=== PATIENT | female | born 1980 ===

== ENCOUNTER → 2023-05-01 16:28 | Outpatient (CLI) | payer BC, SELFPAY ==
--- NOTE | ~2023-05-01 | MM_ITS ---
EXAMINATION: MM screening rosa BI w susan HISTORY: Screening mammogram TECHNIQUE: Craniocaudal and mediolateral oblique 3-D tomosynthesis images were obtained and synthetic 2-D images were generated. CAD analysis was submitted and interpreted. COMPARISON: No prior mammogram is available for comparison at this institution. BREAST PARENCHYMAL COMPOSITION: There are scattered areas of fibroglandular density. FINDINGS: There are scattered benign calcifications. There is no evidence of suspicious mass, calcifi cation, or architectural distortion to suggest malignancy in either breast. IMPRESSION: 1. No mammographic evidence of malignancy. 2. Recommend routine screening mammography in one year. BI-RADS Category 2: Benign finding(s). Reviewed, dictated and finalized at location A.
== END ==
PROVIDERS: PCP Obstetrics & Gynecology; Visit Provider Obstetrics & Gynecology
DX: Z12.31 Encounter for screening mammogram for malignant neoplasm of breast (principal)
CPT/HCPCS: 77063; 77067

== ENCOUNTER 2024-04-13 12:52 | Emergency (ER) | payer OTHER, SELFPAY ==
--- NOTE | ~2024-04-13 | XR_ITS ---
Clinical Indication: Cough PA and lateral views of the chest: Comparison: None Findings: The lungs are clear, without evidence of focal consolidation or pleural effusion. Cardiome diastinal silhouette is within normal limits. Bones and soft tissues are unremarkable. Impression: Normal chest. Reviewed, dictated and finalized at location . Impression: Normal chest.
[2024-04-13 13:07] VITALS: BP 114/72; PULSE 81; RESP 16; TEMP 37.5; O2SAT 99
--- NOTE | 2024-04-13 14:10 | ED.GENADULT ---
HPI - General Adult General Chief complaint: Upper Respiratory Infection Stated complaint: Cough/Chest Congesrion Source: patient Mode of arrival: ambulatory Limitations: no limitations History of Present Illness HPI narrative: Patient presents for evaluation of respiratory symptoms since the middle of last week. Symptoms include cough, wheezing and shortness of breath. Cough was initially productive but has since become nonproductive. She had some body aches and sinus congestion but those symptoms have improved. She has some sensitivity in her ears on a chronic basis, but current symptoms are slightly worse than her baseline. 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 She does not smoke. She tried taking mucinex DM and several other medications without much improvement. She has also tried drinking whiskey, tea with honey and tried several other home remedies without much improvement. She has pleuritic chest discomfort and is having a hard time sleeping secondary to her cough. Related Data Allergies Allergy/AdvReac Type Severity Reaction Status Date / Time Sulfa (Sulfonamide Allergy Severe LOSS OF Verified 09/10/16 18:33 Antibiotics) CONCIOUSNESS Review of Systems Review of Systems: CONSTITUTIONAL: Denies fever, chills, or sweats. EYES: Denies visual changes, redness, or discharge. ENT: Reports ear sensitivity on a chronic basis, with current symptoms slightly worse than her baseline Denies sore throat CARDIOVASCULAR: Reports pleuritic chest pain. Denies chest pain otherwise, palpitations, or edema. RESPIRATORY: Reports cough, SOB and wheezing GASTROINTESTINAL: Denies abdominal pain, nausea, vomiting, or diarrhea. GENITOURINARY: Denies dysuria or hematuria. SKIN: Denies rash or itching. MUSCULOSKELETAL: Reports some recent body aches, which have since improved. NEUROLOGIC: Denies headache, numbness, dizziness, or weakness. PSYCHIATRIC: Denies anxiety or depression. [facility] Past Medical History Medical History No pertinent past medical history Surgical History Surgical History No pertinent past surgical history Family History Family History Mother Unknown family medical history Social History Social History Smoking status: Never smoker Substance use: never Living arrangements: alone Additional occupation/education comments: works in daycare Gender identity (if verbalized by the patient): Female Spiritual care concerns: No Exam Narrative: GENERAL: Well-appearing, well-nourished, and in no acute distress. HEAD: Normocephalic, atraumatic. EYES: PERRLA and EOMI. ENT: Nares clear, no rhinorrhea or epistaxis. Mucous membranes moist. Oropharynx without tonsillar hypertrophy exudate or other lesions. Bilateral TMs pearly brito nonbulging NECK: Supple. No adenopathy or masses. No carotid bruits or JVD CHEST: Occasional cough present on exam. Clear to auscultation. No respiratory distress. No wheezes rales or rhonchi HEART: Regular rate and rhythm. No murmur heard. Normal peripheral pulses. ABDOMEN: Soft, nontender, nondistended, normal active bowel sounds. EXTREMITIES: Normal range of motion. No edema. SKIN: Warm, dry, no rash. NEURO: No focal deficits. Alert and oriented x3. PSYCH: Normal mood and affect. Course Course Emergency Course: This is a 44-year-old female who presented for evaluation of sick symptoms. COVID and influenza were negative. Chest x-ray normal. Exam is consistent with acute viral syndrome. She has been wheezing at home and has pleuritic chest pain will DC with prednisone and albuterol. Increase hydration. OTC agents for symptom management. Follow up with primary provider. Go to the ER for worsen
== END 2024-04-13 14:15 | disposition home or self-care (01) ==
PROVIDERS: Emergency Provider Nurse Practitioner
DX: J06.9 Acute upper respiratory infection, unspecified (principal); Z20.822 Contact with and (suspected) exposure to COVID-19
CPT/HCPCS: 71046; 87426; 87804; 99203; G0463

== ENCOUNTER 2025-10-16 15:27 | Emergency (ER) | payer OTHER, SELFPAY ==
[2025-10-16] VITALS (19 sets, daily range): BP systolic 104–159; BP diastolic 63–100; PULSE 62–98; RESP 13–30; TEMP 36.7; O2SAT 94–100
--- NOTE | ~2025-10-16 | XR_ITS ---
EXAMINATION: XR chest 2V, 10/16/2025 16:00 WELL TESTER HISTORY: cp COMPARISON: No comparisons available. Technique: 2 views obtained. Findings: The lungs are clear, no effusion. No pneumothorax. Heart is normal size. Mediastinal and hilar contours are within normal limits. Bony thorax no acute abnormality. Impression: No acute cardiopulmonary abnormality. Reviewed, dictated and finalized at location P. TESTER Impression: No acute cardiopulmonary abnormality.
--- NOTE | ~2025-10-16 | CT_ITS ---
EXAMINATION: CTA chest PE protocol DATE: 10/16/2025 20:32 INDICATION: Intermittent chest pain. TECHNIQUE: Computed tomography angiography (CTA) of the chest was performed with 100 mL Omnipaque-350 intravenous contrast timed to evaluate the pulmonary arteries. Coronal maximum intensity projection 3D-reconstructions were created by the technologist. Automated exposure control and iterative reconstruction technique were employed. The dose-length product was 336.87 mGy-cm. COMPARISON: None. FINDINGS: The lungs demonstrate mild atelectasis. No pleural effusion. The heart size is normal. No pericardial effusion. There is no pulmonary embolus. There is mild thoracic spondylosis. IMPRESSION: 1. No pulmonary embolus. Reviewed, dictated and finalized at location E. L WHEEL ENGRAVER IMPRESSION: 1. No pulmonary embolus.
--- NOTE | 2025-10-16 15:33 | ECG_ITS ---
Test Date: 2025-10-16 15:37:40 Measurements Intervals [place] Rate: 82 P: 11 MS: 163 QRS: 11 QRSD: 84 T: -7 QT: 358 QTc: 421 Interpretive Statements SINUS RHYTHM CONSIDER INFERIOR INFARCT, AGE INDETERMINATE BORDERLINE ST-T WAVE ABNORMALITY- LAT/HIGH LAT LEADS BASELINE ARTIFACT- I, II, III, AVR, AVL, AVF, V3-V6 ABNORMAL ECG No previous ECG available for comparison Electronically Signed On 10-16-2025 19:34:50 CONFERENCE COORDINATOR by Michael Moore D.O.
--- NOTE | 2025-10-16 15:48 | ED_ITS ---
HPI - General Adult General Chief complaint: Chest Pain <Ildefonso Sanz MD - Last Filed: 10/18/25 02:46> Stated complaint: medial CP and L. shoulder pain <Ildefonso Sanz MD - Last Filed: 10/18/25 02:46> Time Seen by Provider: 10/16/25 15:34 <Ildefonso Sanz MD - Last Filed: 10/18/25 02:46> History of Present Illness HPI narrative: 45-year-old female presents emergency department for evaluation for intermittent substernal chest pain. Patient reports symptoms started today. Patient states pain feels like a pressure in her chest that is worsened with deep inspiration. Patient denies any cardiac history. Patient denies any history of hypertension and cholesterol or diabetes. Patient has never had a stress test. Patient is on estrogen and progesterone for hormone replacement. Patient denies any prior history of PE or DVT. Patient does have reproducible chest wall tenderness to palpation. No lower extremity calf tenderness to palpation <Ildefonso Sanz MD - Last Filed: 10/18/25 02:46> Related Data Allergies/adverse reactions: Allergies Allergy/AdvReac Type Severity Reaction Status Date / Time latex Allergy Severe Dyspnea / Verified 10/16/25 15:30 SOB pseudoephedrine (From Allergy Severe Dyspnea / Verified 10/16/25 15:30 Sudafed) SOB Sulfa (Sulfonamide Allergy Severe Dyspnea / Verified 10/16/25 15:30 Antibiotics) SOB <Ildefonso Sanz MD - Last Filed: 10/18/25 02:46> Review of Systems 2 Review of Systems: All systems reviewed & are unremarkable except as noted in HPI and below <Ildefonso Sanz MD - Last Filed: 10/18/25 02:46> [facility] Past Medical History Medical History: Medical History No pertinent past medical history <Ildefonso Sanz MD - Last Filed: 10/18/25 02:46> Surgical History Surgical History: Surgical History No pertinent past surgical history <Ildefonso Sanz MD - Last Filed: 10/18/25 02:46> Family History Family History: Family History Mother Unknown family medical history <Ildefonso Sanz MD - Last Filed: 10/18/25 02:46> Social History Social History: Social History Smoking status: Never smoker Substance use: never Living arrangements: alone Additional occupation/education comments: works in daycare Gender identity (if verbalized by the patient): Female Spiritual care concerns: No <Ildefonso Sanz MD - Last Filed: 10/18/25 02:46> Exam 2 Narrative: APPEARANCE: Well appearing, no pain, no distress, well-nourished. HEAD: normocephalic, atraumatic. EYES: PERRLA/EOMI, conjunctivae clear. NOSE: Normal no drainage EARS:TMS clear with good light reflex. THROAT: Pharynx clear, no exudate. NECK: Supple. No adenopathy, no masses. RESPIRATORY: Airway patent, respirations nonlabored. Clear to auscultation bilaterally, no rales, rhonchi, wheezing. CARDIOVASCULAR: Regular rate and rhythm without murmurs rubs or gallops. ABDOMINAL: Soft, nontender, nondistended, normal bowel sounds MUSCULOSKELETAL: Reproducible left sternal tenderness to palpation NEURO: Alert. Cranial nerves II through XII intact. Good gait. Good coordination SKIN: Warm, dry. Normal Color <Ildefonso Sanz MD - Last Filed: 10/18/25 02:46> Course UTILITY MANAGER/PA Physician Supervision This visit was performed by both a physician and an APC. I performed all aspects of the MDM as documented. <Samuel Brooks DO - Last Filed: 10/17/25 07:09> Vital Signs Vital signs: Vital Signs Temperature 98.1 F 10/16/25 15:34 Pulse Rate 98 10/16/25 15:34 Respiratory Rate 16 10/16/25 15:34 Blood Pressure 159/100 H 10/16/25 15:34 Pulse Oximetry 98 10/16/25 15:34 Oxygen Delivery Room Air 10/16/25 15:34 Temperature 98.1 F 10/16/25 15:34 Pulse Rate 70 10/17/25 01:29 Respiratory Rate 16 10/17/25 01:29 Blood Pressure 122/69 10/17/25 01:29 Pulse Oximetry 100 10/17/25 01:29 Oxygen Delivery Room Air 10/16/25 15:34 <Ildefonso aSnz MD - Last Filed: 10/18/25 02:46> Vital Signs Temperature 98.1 F 10/16/25 15:34 Pulse Rate 98 10/16/25 15:34 Respiratory Rate 16 10/16/25 15:34 Blood Pressure 159/100 H 10/16/25 15:34 Pulse Oximetry 98 10/16/25 15:34 Oxygen Delivery Room Air 10/16/25 15:34 Temperature 98.1 F 10/16/25 15:34 Pulse Rate 70 10/17/25 01:29 Respiratory Rate 16 10/17/25 01:29 Blood Pressure 122/69 10/17/25 01:29 Pulse Oximetry 100 10/17/25 01:29 Oxygen Delivery Room Air 10/16/25 15:34 <Francisca Fisher APRN - Last Filed: 10/17/25 01:36> Vital Signs Temperature 98.1 F 10/16/25 15:34 Pulse Rate 98 10/16/25 15:34 Respiratory Rate 16 10/16/25 15:34 Blood Pressure 159/100 H 10/16/25 15:34 Pulse Oximetry 98 10/16/25 15:34 Oxygen Delivery Room Air 10/16/25 15:34 Temperature 98.1 F 10/16/25 15:34 Pulse Rate 70 10/17/25 01:29 Respiratory Rate 16 10/17/25 01:29 Blood Pressure 122/69 10/17/25 01:29 Pulse Oximetry 100 10/17/25 01:29 Oxygen Delivery Room Air 10/16/25 15:34 <Samuel Brooks DO - Last Filed: 10/17/25 07:09> MDM MDM Narrative Medical decision making narrative: 45-year-old female presents emergency department for evaluation for chest pain that radiates to the left shoulder. Patient is currently afebrile with no leukocytosis hemoglobin of 14.3. Patient had a negative D-dimer and an INR of 0.9. Patient has no acute abnormalities on her CMP, patient was treated with Toradol with no significant improvement. Patient was also treated with a GI cocktail. Chest x-ray shows no acute cardiopulmonary abnormality. At time of sign-out does troponin is pending. <Ildefonso Sanz MD - Last Filed: 10/18/25 02:46> 45-year-old female presents emergency department for evaluation for chest pain that radiates to the left shoulder. Patient is currently afebrile with no leukocytosis hemoglobin of 14.3. Patient had a negative D-dimer and an INR of 0.9. Patient has no acute abnormalities on her CMP, patient was treated with Toradol with no significant improvement. Patient was also treated with a GI cocktail. Chest x-ray shows no acute cardiopulmonary abnormality. At time of sign-out does troponin is pending. 1744- I took over care of this patient. 1899-patient continues to endorse a fair amount of midsternal chest pain, especially with deep breaths. She reports the pain is so severe that it wakes her out of her sleep. Will proceed forward with a CT scan. 99- Spoke with hospitalist, Dr. Dunlap, who reports pt is not a candidate for admission. He advised pt discharge home and follow-up with her PCP. Patient Education/Shared MDM: Results of lab work and imaging shared with patient. She endorses mild improvement of symptoms following medication administration, but continues to endorse intermittent spasms. Pt will be given a dose of steroids prior to discharge. Patient strongly advised to follow-up with her PCP as soon as possible. If her symptoms do not improve she can also follow up with Cardiology as an outpatient. Patient will be discharged home with a prescription for ibuprofen 800 mg and muscle relaxants. Strict return precautions provided. Patient verbalized understanding and is in agreement with plan. Vital signs stable at time of discharge. All questions answered. HEART Score for Major Cardiac Events from [email or web address] on 10/17/2025 All calculations should be rechecked by clinician prior to use RESULT SUMMARY: 3 points Low Score (0-3 points) Risk of MACE of 0.9-1.7%. INPUTS: History ?> 0 = Slightly suspicious EKG ?> 1 = Non-specific repolarization disturbance Age ?> 1 = 45-64 Risk factors ?> 1 = 1-2 risk factors Initial troponin ?> 0 = <Normal limit <Francisca Fisher APRN - Last Filed: 10/17/25 01:36> Differential Diagnosis Differential Diagnosis: Pleurisy, pneumonia, pulmonary embolism, ACS <Ildefonso Sanz MD - Last Filed: 10/18/25 02:46> Lab Data MDM Lab Attestation statement: I personally reviewed the patient's lab results. <Ildefonso Sanz MD - Last Filed: 10/18/25 02:46> Result diagrams: 10/16/25 15:46 10/16/25 15:46 <Ildefonso Sanz MD - Last Filed: 10/18/25 02:46> Labs: Lab Results 10/16/25 10/16/25 10/16/25 Range/Units 15:46 18:51 21:44 WBC 9.1 (4.5-10.0) K/mm3 RBC 4.97 (4.2-5.4) M/mm3 Hgb 14.3 (12.0-15.0) g/dL Hct 42.9 (37.0-47.0) % MCV 86.3 (80-100) fl MCH 28.8 (26-34) pg MCHC 33.3 (32-36) g/dl RDW 13.4 (11.5-14.5) % Plt Count 318 (150-375) k/mm3 MPV 8.7 (7.4-10.4) fl Immature Gran % (Auto) 0.4 (0-0.5) % Neut % (Auto) 58.3 (45.5-73.1) % Lymph % (Auto) 29.8 (18.3-44.2) % [place] % (Auto) 8.1 (2.6-8.5) % Eos % (Auto) 2.8 (0-4.4) % Baso % (Auto) 0.6 (0.2-1.2) % Lymph # (Auto) 2.71 (0.9-3.2) K/mm3 [place] # (Auto) 0.7 H (0.1-0.6) K/mm3 Eos # (Auto) 0.3 (0-0.3) K/mm3 Baso # (Auto) 0.1 (0.0-0.1) K/mm3 Abs Immat Gran (auto) 0.04 H (0.00-0.031) K/mm3 Absolute Neuts (auto) 5.3 (1.3-6.7) K/mm3 Absolute Nucleated RBC 0.000 (0.0-0.012) K/mm3 Nucleated RBC % 0.0 (0.0-0.2) % PT 12.8 (11.1-14.7) Seconds INR 0.9 APTT 29.9 (22.3-36.8) Seconds D-Dimer 0.41 (<0.48) ug/mL Sodium 136 L (137-145) mmol/L Potassium 4.1 (3.4-5.0) mmol/L Chloride 104 (98-107) mmol/L Carbon Dioxide 25 (22-30) mmol/L Anion Gap 7 (4-12) mmol/L BUN 12 (7-17) mg/dL Creatinine 0.79 (0.7-1.0) mg/dL Estim Creat Clear Calc 81 ml/min Estimated GFR > 60 (59 - ) Glucose 95 (65-110) mg/dL Calcium 9.7 (8.4-10.2) mg/dL Total Bilirubin 0.5 (0.2-1.3) mg/dL AST 29 (14-36) U/L ALT 23 (6-35) U/L Alkaline Phosphatase 138 H (38-126) U/L Troponin I < 0.012 < 0.012 < 0.012 (0.000-0.034) ng/mL Total Protein 8.8 H (6.3-8.2) g/dL Albumin 4.6 (3.5-5.1) g/dL Lipase 131 (23-300) U/L <Ildefonso Sanz MD - Last Filed: 10/18/25 02:46> Lab Results 10/16/25 10/16/25 10/16/25 Range/Units 15:46 18:51 21:44 WBC 9.1 (4.5-10.0) K/mm3 RBC 4.97 (4.2-5.4) M/mm3 Hgb 14.3 (12.0-15.0) g/dL Hct 42.9 (37.0-47.0) % MCV 86.3 (80-100) fl MCH 28.8 (26-34) pg MCHC 33.3 (32-36) g/dl RDW 13.4 (11.5-14.5) % Plt Count 318 (150-375) k/mm3 MPV 8.7 (7.4-10.4) fl Immature Gran % (Auto) 0.4 (0-0.5) % Neut % (Auto) 58.3 (45.5-73.1) % Lymph % (Auto) 29.8 (18.3-44.2) % [place] % (Auto) 8.1 (2.6-8.5) % Eos % (Auto) 2.8 (0-4.4) % Baso % (Auto) 0.6 (0.2-1.2) % Lymph # (Auto) 2.71 (0.9-3.2) K/mm3 [place] # (Auto) 0.7 H (0.1-0.6) K/mm3 Eos # (Auto) 0.3 (0-0.3) K/mm3 Baso # (Auto) 0.1 (0.0-0.1) K/mm3 Abs Immat Gran (auto) 0.04 H (0.00-0.031) K/mm3 Absolute Neuts (auto) 5.3 (1.3-6.7) K/mm3 Absolute Nucleated RBC 0.000 (0.0-0.012) K/mm3 Nucleated RBC % 0.0 (0.0-0.2) % PT 12.8 (11.1-14.7) Seconds INR 0.9 APTT 29.9 (22.3-36.8) Seconds D-Dimer 0.41 (<0.48) ug/mL Sodium 136 L (137-145) mmol/L Potassium 4.1 (3.4-5.0) mmol/L Chloride 104 (98-107) mmol/L Carbon Dioxide 25 (22-30) mmol/L Anion Gap 7 (4-12) mmol/L BUN 12 (7-17) mg/dL Creatinine 0.79 (0.7-1.0) mg/dL Estim Creat Clear Calc 81 ml/min Estimated GFR > 60 (59 - ) Glucose 95 (65-110) mg/dL Calcium 9.7 (8.4-10.2) mg/dL Total Bilirubin 0.5 (0.2-1.3) mg/dL AST 29 (14-36) U/L ALT 23 (6-35) U/L Alkaline Phosphatase 138 H (38-126) U/L Troponin I < 0.012 < 0.012 < 0.012 (0.000-0.034) ng/mL Total Protein 8.8 H (6.3-8.2) g/dL Albumin 4.6 (3.5-5.1) g/dL Lipase 131 (23-300) U/L <Francisca Fisher, NEON MOLDER - Last Filed: 10/17/25 01:36> Lab Results 10/16/25 10/16/25 10/16/25 Range/Units 15:46 18:51 21:44 WBC 9.1 (4.5-10.0) K/mm3 RBC 4.97 (4.2-5.4) M/mm3 Hgb 14.3 (12.0-15.0) g/dL Hct 42.9 (37.0-47.0) % MCV 86.3 (80-100) fl MCH 28.8 (26-34) pg MCHC 33.3 (32-36) g/dl RDW 13.4 (11.5-14.5) % Plt Count 318 (150-375) k/mm3 MPV 8.7 (7.4-10.4) fl Immature Gran % (Auto) 0.4 (0-0.5) % Neut % (Auto) 58.3 (45.5-73.1) % Lymph % (Auto) 29.8 (18.3-44.2) % [place] % (Auto) 8.1 (2.6-8.5) % Eos % (Auto) 2.8 (0-4.4) % Baso % (Auto) 0.6 (0.2-1.2) % Lymph # (Auto) 2.71 (0.9-3.2) K/mm3 [place] # (Auto) 0.7 H (0.1-0.6) K/mm3 Eos # (Auto) 0.3 (0-0.3) K/mm3 Baso # (Auto) 0.1 (0.0-0.1) K/mm3 Abs Immat Gran (auto) 0.04 H (0.00-0.031) K/mm3 Absolute Neuts (auto) 5.3 (1.3-6.7) K/mm3 Absolute Nucleated RBC 0.000 (0.0-0.012) K/mm3 Nucleated RBC % 0.0 (0.0-0.2) % PT 12.8 (11.1-14.7) Seconds INR 0.9 APTT 29.9 (22.3-36.8) Seconds D-Dimer 0.41 (<0.48) ug/mL Sodium 136 L (137-145) mmol/L Potassium 4.1 (3.4-5.0) mmol/L Chloride 104 (98-107) mmol/L Carbon Dioxide 25 (22-30) mmol/L Anion Gap 7 (4-12) mmol/L BUN 12 (7-17) mg/dL Creatinine 0.79 (0.7-1.0) mg/dL Estim Creat Clear Calc 81 ml/min Estimated GFR > 60 (59 - ) Glucose 95 (65-110) mg/dL Calcium 9.7 (8.4-10.2) mg/dL Total Bilirubin 0.5 (0.2-1.3) mg/dL AST 29 (14-36) U/L ALT 23 (6-35) U/L Alkaline Phosphatase 138 H (38-126) U/L Troponin I < 0.012 < 0.012 < 0.012 (0.000-0.034) ng/mL Total Protein 8.8 H (6.3-8.2) g/dL Albumin 4.6 (3.5-5.1) g/dL Lipase 131 (23-300) U/L <Samuel Brooks DO - Last Filed: 10/17/25 07:09> Imaging Data Attestation: I personally reviewed and interpreted this imaging study as follows: <Ildefonso Sanz MD - Last Filed: 10/18/25 02:46> My impression: Chest x-ray: No acute cardiopulmonary abnormality <Ildefonso Sanz MD - Last Filed: 10/18/25 02:46> Radiologist's impression: ITS Impressions Chest X-Ray 10/16/25 16:11 Impression: No acute cardiopulmonary abnormality. Chest CTA 10/17/25 07:13 IMPRESSION: 1. No pulmonary embolus. <Ildefonso Sanz MD - Last Filed: 10/18/25 02:46> ITS Impressions Chest X-Ray 10/16/25 16:11 Impression: No acute cardiopulmonary abnormality. Chest CTA 10/17/25 07:13 IMPRESSION: 1. No pulmonary embolus. <Francisca Fisher APRN - Last Filed: 10/17/25 01:36> ITS Impressions Chest X-Ray 10/16/25 16:11 Impression: No acute cardiopulmonary abnormality. Chest CTA 10/17/25 07:13 IMPRESSION: 1. No pulmonary embolus. <Samuel Brooks DO - Last Filed: 10/17/25 07:09> Discharge Plan Discharge Clinical Impression: Atypical chest pain, Costalchondritis <Ildefonso Sanz MD - Last Filed: 10/18/25 02:46> Patient Disposition: Home <Ildefonso Sanz MD - Last Filed: 10/18/25 02:46> Condition: Stable <Ildefonso Sanz MD - Last Filed: 10/18/25 02:46> Instructions: Antibiotic Form, Costochondritis (ED) <Ildefonso Sanz MD - Last Filed: 10/18/25 02:46> Additional Instructions: Please return to the ER with any worsening symptoms. Establish care with a primary care provider as soon as possible. If your symptoms continue please follow-up with cardiology. Please take Tylenol and/or ibuprofen for pain control. You may also take muscle relaxants for pain control but please do not drive any motorized vehicles afterwards. Remember to drink lots of water to stay hydrated. <Ildefonso Sanz MD - Last Filed: 10/18/25 02:46> Patient Language: Bulgarian <Ildefonso Sanz MD - Last Filed: 10/18/25 02:46> Prescriptions: New cyclobenzaprine 5 mg tablet 5 mg PO TID PRN (Reason: muscle spasm) Qty: 30 0RF ibuprofen 800 mg tablet 800 mg PO TID PRN (Reason: pain) Qty: 30 0RF No Action prednisone 50 mg tablet 50 mg PO DAILY Qty: 5 0RF albuterol sulfate 90 mcg/actuation HFA aerosol inhaler 2 puff inhalation QID PRN (Reason: shortness of breath or wheezing) Qty: 8.5 0RF <Ildefonso Sanz MD - Last Filed: 10/18/25 02:46> Follow-up/Referrals: Martine Mullen DO [Physician, Family Practice] Del Murillo MD [Physician, Cardiology] PHYSICIAN,JEWELRY SALES COORDINATOR [Primary Care Provider, Internal Medicine] <Ildefonso Sanz MD - Last Filed: 10/18/25 02:46> Stand Alone Forms: Work/School Release IP <Ildefonso Sanz MD - Last Filed: 10/18/25 02:46> Time of Disposition: 01:00 <Ildefonso Sanz MD - Last Filed: 10/18/25 02:46> 01:00 <Francisca Fisher APRN - Last Filed: 10/17/25 01:36> 01:00 <Samuel Brooks DO - Last Filed: 10/17/25 07:09>
[2025-10-16 15:51] LABS: Hematocrit 42.9 % (37.0-47.0); Hemoglobin 14.3 g/dL (12.0-15.0); Immature Granulocyte Percent A 0.4 % (0-0.5); Lymphocytes Absolute Auto 2.71 K/mm3 (0.9-3.2); Mean Corpuscular HGB Conc 33.3 g/dl (32-36); Mean Corpuscular Hemoglobin 28.8 pg (26-34); Mean Corpuscular Volume 86.3 fl (80-100); Nucleated Red Blood Cells Absolute Auto 0.000 K/mm3 (0.0-0.012); Nucleated Red Blood Cells Perc 0.0 % (0.0-0.2); Platelet Count Result 318 k/mm3 (150-375); Red Blood Count 4.97 M/mm3 (4.2-5.4); White Blood Count 9.1 K/mm3 (4.5-10.0)
[2025-10-16 16:09] LABS: INR 0.9; Prothrombin Time 12.8 Seconds (11.1-14.7)
[2025-10-16] MEDS: KETOROLAC 30 MG/ML VIAL (*BKC) IV PUSH (16:09)
[2025-10-16 16:10] LABS: Partial Thromboplastin Time 29.9 Seconds (22.3-36.8)
[2025-10-16 16:27] LABS: Alanine Aminotransferase 23 U/L (6-35); Albumin Level 4.6 g/dL (3.5-5.1); Alkaline Phosphatase 138 U/L (38-126); Anion Gap 7 mmol/L (4-12); Aspartate Amino Transferase 29 U/L (14-36); Bilirubin,Total 0.5 mg/dL (0.2-1.3); Blood Urea Nitrogen 12 mg/dL (7-17); Calcium 9.7 mg/dL (8.4-10.2); Carbon Dioxide 25 mmol/L (22-30); Chloride 104 mmol/L (98-107); Estimated CRCL calculation 81 ml/min; Estimated Glomerular Filt Rate > 60; Glucose 95 mg/dL (65-110); Lipase 131 U/L (23-300); Potassium 4.1 mmol/L (3.4-5.0); Sodium 136 mmol/L (137-145); Total Protein 8.8 g/dL (6.3-8.2)
[2025-10-16 16:39] LABS: Troponin I < 0.012 ng/mL (0.000-0.034)
[2025-10-16] MEDS: HYDROmorphone HCL INJ (*CRX) 1 MG/ML SYR 0.5 MG IV PUSH (17:27)
[2025-10-16] MEDS: BELLADONNA ALK/PHENOB ELIX 10 ML, MAG HYDROX/ALUMINUM HYD/SIMETH 30 ML, LIDOCAINE 2% VI... PO (17:28)
--- NOTE | 2025-10-16 18:45 | ECG_ITS ---
Test Date: 2025-10-16 18:52:29 Measurements Intervals [place] Rate: 63 P: -7 NE: 169 QRS: 6 QRSD: 91 T: 5 QT: 400 QTc: 411 Interpretive Statements SINUS RHYTHM CONSIDER INFERIOR INFARCT, AGE INDETERMINATE BASELINE ARTIFACT- I, III, AVR, AVL, AVF, V4-V6 ABNORMAL ECG Compared to ECG 10/16/2025 15:37:40 NO SIGNIFICANT CHANGE Electronically Signed On 10-16-2025 19:36:33 HOE RUNNER by Michael Moore D.O.
[2025-10-16 19:24] LABS: Troponin I < 0.012 ng/mL (0.000-0.034)
[2025-10-16] MEDS: LIDOCAINE 5% PATCH 1 PATCH TRANSDERM (19:53)
[2025-10-16 22:16] LABS: Troponin I < 0.012 ng/mL (0.000-0.034)
[2025-10-16] MEDS: diazePAM (*CRX) 5 MG TABLET PO (23:39)
[2025-10-16] MEDS: KETOROLAC 15 MG/ML VIAL (*BKC) IV PUSH (23:41)
[2025-10-17 01:29] VITALS: BP 122/69; PULSE 70; RESP 16; O2SAT 100
== END 2025-10-17 01:29 | disposition home or self-care (01) ==
PROVIDERS: Emergency Provider Emergency Medicine
DX: R07.89 Other chest pain (principal); M94.0 Chondrocostal junction syndrome [Tietze]
CPT/HCPCS: 36415; 71046; 71275; 80053; 83690; 84484; 85025; 85380; 85610; 85730; 93005; 96374; 96375; 96376; 99284; A9270; J1171; J1885; J7512; Q9967